=== PATIENT | female | born 1985 | race African-American/Black ===

== ENCOUNTER 2025-03-05 09:57 | Outpatient (CLI) | payer BC, OTHER | END 2025-03-05 09:58 | disposition home or self-care (01) | LOC: CSHMRI 09:57 | PROVIDERS: ATTEND Internal Medicine Hematology & Oncology | DX: C50.811 Malignant neoplasm of overlapping sites of right female breast (principal); K86.2 Cyst of pancreas | CPT/HCPCS: 74183; 93306 ==